=== PATIENT | male | born 2000 | race Caucasian/White ===

== ENCOUNTER 2022-12-20 11:21 | Emergency (ER) | payer OTHER ==
[~2022-12-20] VITALS: Ht 190.5 cm; Wt 74.5 kg
[2022-12-20 13:13] VITALS: BP 113/74
== END 2022-12-20 13:14 | disposition home or self-care (01) ==
LOC: ED 11:21
DX: S62.667A Nondisplaced fracture of distal phalanx of left little finger, initial encounter for closed fracture (principal); Z28.310 Unvaccinated for COVID-19; W23.1XXA Caught, crushed, jammed, or pinched between stationary objects, initial encounter; Y92.59 Other trade areas as the place of occurrence of the external cause; Y99.0 Civilian activity done for income or pay